=== PATIENT | male | born 1995 | race Caucasian/White ===

== ENCOUNTER 2023-01-08 02:31 | Emergency (ER) | payer SELFPAY ==
[~2023-01-08] VITALS: Ht 182.9 cm; Wt 114.0 kg
[2023-01-08 02:34] VITALS: O2SAT 98
[2023-01-08] MEDS ORDERED: HYDROCODONE/ACETAMINOPHEN 5/325MG TABLET PO PRN (03:00)
[2023-01-08] MEDS ORDERED: TETANUS, DIPHTHERIA, PERTUSSIS VAC/PF 0.5ML (>10YR OLD) IM ONE (03:00)
[2023-01-08] MEDS ORDERED: ACET-2708 MT (06:00)
[2023-01-08] MEDS ORDERED: CYCL10TA21 MT (06:08)
[2023-01-08] MEDS ORDERED: HYDROCODONE/ACETAMINOPHEN 5/325MG TABLET PO ONE (06:15)
[2023-01-08 06:20] VITALS: BP 138/76; PULSE 72; RESP 18; TEMP 98.4
== END 2023-01-08 06:21 | disposition home or self-care (01) ==
LOC: ER 02:31
DX: S00.03XA Contusion of scalp, initial encounter (principal); W18.39XA Other fall on same level, initial encounter; Y93.89 Activity, other specified; Y92.89 Other specified places as the place of occurrence of the external cause; Y99.8 Other external cause status
CPT/HCPCS: 73552; 73562; 90471; 90715; 99285

== ENCOUNTER 2023-01-22 18:46 | Emergency (ER) | payer SELFPAY ==
[~2023-01-22] VITALS: Ht 182.9 cm; Wt 109.0 kg
[~2023-01-22 18:46] MED LIST: ACET-2708 MT; CYCL10TA21 MT
[2023-01-22 18:48] VITALS: O2SAT 98
[2023-01-22 22:14] VITALS: BP 155/88
[2023-01-22] MEDS: IBUPROFEN 600MG TABLET PO STA (22:14)
[2023-01-23] MEDS ORDERED: IBUP-2029 MT (00:32)
[2023-01-23 00:38] VITALS: PULSE 70; RESP 18; TEMP 98.6
== END 2023-01-23 00:42 | disposition home or self-care (01) ==
LOC: ER 18:46
DX: S09.90XA Unspecified injury of head, initial encounter (principal); X58.XXXA Exposure to other specified factors, initial encounter; Y93.89 Activity, other specified; Y92.89 Other specified places as the place of occurrence of the external cause; Y99.8 Other external cause status
CPT/HCPCS: 99284